=== PATIENT | male | born 1940 | race Caucasian/White ===

== ENCOUNTER 2017-10-16 06:56 | Day surgery (SDC) | payer OTHER ==
[~2017-10-16] VITALS: Ht 170.2 cm; Wt 76.4 kg
[2017-10-16 07:10] VITALS: BP 148/111; PULSE 79; RESP 20; TEMP 98.1; O2SAT 95
[2017-10-16] MEDS ORDERED: ZOLP5TAB3 PO (07:11)
[2017-10-16] MEDS ORDERED: LISI10TA3 PO (07:11)
[2017-10-16] MEDS ORDERED: DIAZEPAM 5 MG TAB PO SCH (07:30)
[2017-10-16 07:31] LABS: BASOPHIL % 0.1 % (0.0-2.0); EOSINOPHIL # 0.2 TH/MM3 (0-0.4); EOSINOPHIL % 2.6 % (0.0-4.0); HEMATOCRIT 56.3 % (39.0-51.0); LYMPH % 25.4 % (9.0-44.0); LYMPHOCYTE # 2.2 TH/MM3 (1.0-4.8); MEAN CELL VOLUME 97.9 FL (80.0-100.0); MEAN CORPUSCULAR HEMOGLOBIN 33.4 PG (27.0-34.0); MEAN CORPUSCULAR HGB CONC 34.1 % (32.0-36.0); MONO % 12.6 % (0.0-8.0); NEUT % 59.3 % (16.0-70.0); PLATELET COUNT 59 TH/MM3 (150-450); RED BLOOD COUNT 5.76 MIL/MM3 (4.50-5.90); RED CELL DISTRIBUTION WIDTH 12.8 % (11.6-17.2); WHITE BLOOD COUNT 8.5 TH/MM3 (4.0-11.0)
[2017-10-16 07:35] LABS: APTT (PATIENT) 26.4 SEC (24.3-30.1); INTERNATIONAL NORMALIZED RATIO 1.1 RATIO; PROTHROMBIN TIME - PATIENT 11.8 SEC (9.8-11.6)
[2017-10-16 07:44] LABS: BICARBONATE 27.6 MEQ/L (21.0-32.0); POTASSIUM 4.4 MEQ/L (3.5-5.1)
[2017-10-16 07:55] LABS: HEMO FLAGS AUTO DIFF
[2017-10-16 07:57] LABS: PLATELET ESTIMATE SMEAR LOW (NORMAL); PLATELET MORPHOLOGY NORMAL (NORMAL); SCAN/DIFF AUTO DIFF CONFIRMED
[2017-10-16] MEDS ORDERED: LACTATED RINGER'S 1000 ML INJ 1,000 ML IV SCH ×2 (08:00→09:00)
--- NOTE | 2017-10-16 08:56 | PD.RAD ---
Post Procedure Progress Note Pre Procedure Diagnosis: (1) Back pain Post Procedure Diagnosis: (1) Back pain Procedure Date: Oct 16, 2017 Supervising Radiologist: Alejandro Diaz Proceduralist/Assist: RT Cristóbal(R), RT Norma(R) Anesthesia: Local Plan of Activity Patient to Unit: Other (CT) Patient Condition: Good See PACS Report for procedural detail/treatment Spinal Procedure Myelogram L3-L4 Puncture Time: 08:40 Findings: Multilevel mild to moderate disc bulges. CT to follow. Alejandro Diaz MD Oct 16, 2017 08:56
--- NOTE | 2017-10-16 09:26 | RADRPT ---
EXAM DATE/TIME: 10/16/2017 08:33 [facility] COMPARISON: No previous studies available for comparison. INDICATIONS : Patient presents with lumbar spondolylosis and pain in need of lumbar myelogram for further evaluatio n. MEDICAL HISTORY : HTN Lumbar spondolylosis PAD SURGICAL HISTORY : Pacemaker Heart failure ENCOUNTER: Initial ACUITY: > 1 year PAIN SCORE: 4/10 LOCATION: Lower back pain. LUMBAR PUNCTURE TIME: 08:40 hours FLUORO TIME: 1.0 minutes IMAGE SERIES: 3 CONTRAST: 20 cc Omnipaque (iohexol) 180 ACCESS LEVEL: L3-4 PROCEDURE : 1. Fluoroscopic guided lumbar puncture. 2. Lumbar myelogram. The risks, benefits and alternatives to the procedure were explained and verbal and written consent w as obtained. The site was prepped in sterile fashion. Full sterile technique was used, including ca p, mask, sterile gloves and gown and a large sterile sheet. Hand hygiene and 2% chlorhexidine and/or betadine/alcohol prep was utilized per protocol for cutaneous antisepsis. The skin and subcutaneous tissues were infiltrated with local anesthetic solution. With fluoroscopic guidance the lumbar thecal sac was punctured at level above and a diagnostic quanti ty of contrast is present in the subarachnoid space. Radiographs were obtained of the lumbar spine. Lateral projection shows impingement on the anterior aspect of the thecal sac at multiple levels from L2-3 through L4-5. No contrast identified at the L1-2 level currently. Multilevel degenerative disc disease with marginal spurring throughout. No fracture. The patient tolerated procedure well and there were no complications. CT scan is to be performed for further evaluation. CONCLUSION: Uncomplicated lumbar myelogram as above. CT scan is to be performed for further evaluation. Alejandro Diaz MD on October 16, 2017 at 9:19 Board Certified Radiologist. This report was verified electronically.
[2017-10-16 09:40] VITALS: BP 141/80; PULSE 81; RESP 16; O2SAT 94
--- NOTE | 2017-10-16 09:59 | RADRPT ---
EXAM DATE/TIME: 10/16/2017 09:24 [facility] COMPARISON: No previous studies available for comparison. INDICATIONS : Post myelogram, lumbar spondylosis RADIATION DOSE: 39.12 CTDIvol (mGy) MEDICAL HISTORY : Hypertension. SURGICAL HISTORY : None. ENCOUNTER: Initial ACUITY: 1 day PAIN SCALE: 3/10 LOCATION: low back TECHNIQUE: Volumetric scanning of the lumbar spine was performed. Multiplanar reconstructions in the sagittal, coronal and oblique axial planes were performed. Using automated exposure control and adjustment of the mA and/or kV according to patient size, radiation dose was kept as low as reasonably achievable t o obtain optimal diagnostic quality images. DICOM format image data is available electronically for review and comparison. FINDINGS: Sagittal and coronal reformats are provided. These demonstrate severely degenerated disc at L2/3, L4/ 5 and L5/S1. This will be further assessed by axial imaging. Overall alignment is adequate. T12-L1: The thecal sac has a normal diameter. No evidence of disc bulge or protrusion. The neural foramina are patent bilaterally. L1-L2: There is a small broad-based disc bulge. There is mild facet arthritis bilaterally. The thecal space and neural foramina are adequate. L2-L3: There is a severely degenerated disc with broad based disc bulge and osteophytic ridging. There is fa cet arthritis bilaterally with degenerative facet and ligamentous hypertrophy. These changes result i n mild degree of spinal stenosis and moderate foraminal narrowing. L3-L4: There is a broad-based disc bulge which effaces the ventral thecal sac. There is moderate facet arthr itis bilaterally with degenerative facet and ligamentous hypertrophy. These changes result in mild st enosis and mild bilateral foraminal narrowing. Foraminal narrowing is slight worse on the right than the left. L4-L5: There is a severely degenerated disc with broad based disc bulge and extensive osteophytic ridging. T here is moderate facet arthritis bilaterally with degenerative facet and ligamentous hypertrophy. The se changes combine to result in a severe spinal stenosis and severe bilateral foraminal narrowing. Th ere is both osteophytic spur and disc projecting into the foramina bilaterally. This is worse on the left than the right. L5-S1: There is a degenerated disc with a small broad-based disc bulge. The residual thecal space and forami na appear adequate. There is mild facet arthritis bilaterally. CONCLUSION: 1. There are severe degenerative changes thoracic spine most notably at the L4/5 level. The individua l levels are dictated in detail above. Dashawn Menon MD on October 16, 2017 at 9:42 Board Certified Radiologist. This report was verified electronically.
[2017-10-16 12:20] VITALS: BP 127/76; PULSE 83; RESP 16; O2SAT 97
== END 2017-10-16 12:50 | disposition home or self-care (01) ==
LOC: HROP 06:56 → HRIP 06:59 → HROP 12:50
PROVIDERS: ATTEND Orthopaedic Surgery Orthopaedic Surgery of the Spine
DX: M54.5 Low back pain (principal); M47.896 Other spondylosis, lumbar region; I10 Essential (primary) hypertension; I73.9 Peripheral vascular disease, unspecified; D69.6 Thrombocytopenia, unspecified; Z95.0 Presence of cardiac pacemaker
CPT/HCPCS: 62304; 72131; 80048; 85025; 85610; 85730; J7120; 77003